=== PATIENT | female | born 1950 | race Caucasian/White ===

== ENCOUNTER 2016-08-18 15:48 | Inpatient (IN) ==
[2016-08-18] MEDS ORDERED: IOPAMIDOL 100 ML BOTTLE IV ONE (15:49)
[2016-08-18] MEDS ORDERED: IPRATROPIUM/ALBUTEROL 3 ML AMPUL.NEB NEB ONE ×2 (15:51→16:40)
[2016-08-18] MEDS ORDERED: ALBUTEROL SULFATE 2.5 MG/3 ML NEBULIZER NEB ONE (16:08)
--- NOTE | 2016-08-18 16:11 | Emergency Department Note ---
SOB HPI - General Chief Complaint: Shortness of Breath/Dyspnea Stated Complaint: Shortness of breath Time Seen by Provider: 08/18/16 16:07 Source: patient Mode of arrival: ambulatory Limitations: no limitations - History of Present Illness 66-year-old female on hormone replacement therapy with sudden onset shortness of breath with hypoxia down to 82% on arrival- started 2 hours ago. Has been antibiotics up until yesterday for upper respiratory infection and UTI at last visit. Denies fever nausea vomiting diarrhea. No cancer history. - Related Data Home Medications Medication Instructions Recorded Confirmed cholecalciferol (vitamin D3) 2,000 2,000 unit PO QDAY cap 03/15/15 08/18/16 unit capsule fentanyl 25 mcg/hr transdermal 1 patch TRANSDERMA Q48H patch 03/15/15 08/18/16 patch HYDROcodone/ACETAMINOPHEN [[place] 1 tab PO BID PRN tab 12/08/15 08/18/16 Hd 10-325 mg Tablet] Levothyroxine Sodium [Levoxyl] 100 mcg PO DAILY 30 Days 12/08/15 08/18/16 cyclobenzaprine 10 mg tablet 10 mg PO QHS 30 Days 12/08/15 08/18/16 DULoxetine 60 mg PO DAILY 02/22/16 08/18/16 Previous Rx's Medication Instructions Recorded conjugated estrogens 1.25 mg tablet 1.25 mg PO QDAY #90 tab 08/26/15 propranolol 40 mg tablet 20 mg PO BID #90 tab 12/14/15 isosorbide mononitrate ER 30 mg 30 mg PO QDAY 90 Days 04/20/16 tablet,extended release 24 hr hydrochlorothiazide 25 mg tablet 25 mg PO QDAY 90 Days 04/23/16 atorvastatin 10 mg tablet 10 mg PO QDAY #90 tab 05/08/16 potassium chloride ER 10 mEq 10 meq PO BID #180 tab 07/03/16 tablet,extended release(part/cryst) metformin ER 500 mg 500 mg PO QDAY #90 tab 07/05/16 tablet,extended release 24 hr temazepam 30 mg capsule 30 mg PO QHS PRN #30 cap 08/03/16 Allergies Allergy/AdvReac Type Severity Reaction Status Date / Time No Known Drug Allergies Allergy Verified 08/18/16 15:50 Review of Systems All systems ED: reviewed and negative except as stated. Past Medical History - Past Medical History Attestation: Yes: The following information was validated with the patient. Medical history: Reports: arthritis, asthma, diabetes, fibromyalgia, GERD, hyperlipidemia, hypertension, thyroid disease Surgical history ED: Reports: cataract, cholecystectomy, herniorrhaphy, orthopedic, other, BETTE/BSO, thyroidectomy, tonsillectomy - Social History smoking status: Former smoker Physical Exam Normocephalic atraumatic. Conjunctiva clear sclerae anicteric. No nasal discharge but some audible congestion. Oropharynx is pink and moist. Posterior pharynx is with some mild erythema postnasal drip. Wearing nasal cannula oxygen. No lymphadenopathy or thyromegaly. Heart is regular rate and rhythm no murmurs appreciated. Lungs with some subtle wheezes in all lung garcia. Tight breathing sounds. Able to talk but not in complete sentences without pausing for breath. +2 radial pulse. Abdomen soft nontender nondistended. No pedal edema. Alert and oriented. - General Limitations: no limitations Course Vital Signs Temperature 97.3 F L 08/18/16 15:48 Pulse Rate 96 H 08/18/16 15:48 Respiratory Rate 20 08/18/16 15:48 Blood Pressure 166/98 08/18/16 15:48 Pulse Oximetry (%) 82 L 08/18/16 15:48 Temperature 97.3 F L 08/18/16 15:48 Pulse Rate 102 H 08/18/16 19:00 Respiratory Rate 14 08/18/16 19:00 Blood Pressure 103/61 08/18/16 19:00 Pulse Oximetry (%) 90 08/18/16 19:00 Shortness of Breath/Dyspnea - Lab Data Lab results reviewed: Yes I reviewed the patient's lab results. Result diagrams: 08/18/16 16:06 08/18/16 16:06 Lab Results 08/18/16 08/18/16 08/18/16 Range/Units 16:06 16:06 16:06 WBC 5.1 (4.5-11.0) K/mcL RBC 4.58 (4.00-5.20) M/mcL Hgb 13.9 (12.0-15.0) g/dL Hct 42.1 (36.0-48.0) % POC Hct (36.0-48.0) % MCV 91.8 (80.0-100.0) fL MCH 30.2 (26.0-34.0) pg MCHC 33.0 (31.0-36.0) g/dL RDW 13.0 (11.5-14.5) % Plt Count 322 (140-440) K/mcL MPV 8.2 (7.4-10.4) fL Gran % 71.6 (38.0-78.0) % Lymph % (Auto) 27.4 (15.5-49.0) % [place] % (Auto) 0.4 L (1.0-9.0) % Eos % (Auto) 0.3 (0.0-7.0) % Baso % (Auto) 0.3 (0.0-2.0) % Gran # 3.6 (1.8-8.0) K/mcL Lymph # 1.4 L (1.5-4.8) K/mcL [place] # 0 L (0.1-0.9) K/mcL Eos # 0 (0.0-0.7) K/mcL Baso # 0 (0.0-0.3) K/mcL POC Sodium (133-145) mmol/L Sodium 138 (133-145) mmol/L POC Potassium (3.3-5.1) mmol/L Potassium 3.6 (3.3-5.1) mmol/L POC Chloride (96-108) mmol/L Chloride 99 (96-108) mmol/L Carbon Dioxide 27 (22-30) mmol/L POC Total CO2 (22-30) mmol/L Anion Gap 12.0 (8-16) POC BUN (8-23) mg/dl BUN 10 (8-23) mg/dl Creatinine 0.7 (0.6-1.1) mg/dl POC Creatinine (0.6-1.1) mg/dl GFR Calculation 92 Glucose 128 H (70-105) mg/dL POC Glucose (70-105) mg/dL Calcium 9.0 (8.6-10.4) mg/dl POC WB Ioniz Calcium (1.16-1.32) mmol/L Total Bilirubin 0.4 (0.0-1.0) mg/dL AST 21 (0-37) U/l ALT 18 (0-40) U/l Alkaline Phosphatase 35 L (39-117) U/L Troponin T < 0.01 (0-0.03) ng/ml Total Protein 6.0 (5.9-8.4) gm/dL Albumin 3.7 (3.2-5.2) gm/dL Globulin 2.3 (2.2-3.7) gm/dL Albumin/Globulin Ratio 1.6 (1.0-2.3) 08/18/16 Range/Units 16:10 WBC (4.5-11.0) K/mcL RBC (4.00-5.20) M/mcL Hgb (12.0-15.0) g/dL Hct (36.0-48.0) % POC Hct 43.0 (36.0-48.0) % MCV (80.0-100.0) fL MCH (26.0-34.0) pg MCHC (31.0-36.0) g/dL RDW (11.5-14.5) % Plt Count (140-440) K/mcL MPV (7.4-10.4) fL Gran % (38.0-78.0) % Lymph % (Auto) (15.5-49.0) % [place] % (Auto) (1.0-9.0) % Eos % (Auto) (0.0-7.0) % Baso % (Auto) (0.0-2.0) % Gran # (1.8-8.0) K/mcL Lymph # (1.5-4.8) K/mcL [place] # (0.1-0.9) K/mcL Eos # (0.0-0.7) K/mcL Baso # (0.0-0.3) K/mcL POC Sodium 140 (133-145) mmol/L Sodium (133-145) mmol/L POC Potassium 3.7 (3.3-5.1) mmol/L Potassium (3.3-5.1) mmol/L POC Chloride 99 (96-108) mmol/L Chloride (96-108) mmol/L Carbon Dioxide (22-30) mmol/L POC Total CO2 27 (22-30) mmol/L Anion Gap (8-16) POC BUN 10 (8-23) mg/dl BUN (8-23) mg/dl Creatinine (0.6-1.1) mg/dl POC Creatinine 0.7 (0.6-1.1) mg/dl GFR Calculation Glucose (70-105) mg/dL POC Glucose 127 H (70-105) mg/dL Calcium (8.6-10.4) mg/dl POC WB Ioniz Calcium 1.16 (1.16-1.32) mmol/L Total Bilirubin (0.0-1.0) mg/dL AST (0-37) U/l ALT (0-40) U/l Alkaline Phosphatase (39-117) U/L Troponin T (0-0.03) ng/ml Total Protein (5.9-8.4) gm/dL Albumin (3.2-5.2) gm/dL Globulin (2.2-3.7) gm/dL Albumin/Globulin Ratio (1.0-2.3) ABG pH 7.42 PCO2 42 PO2 60 on oxygen - Radiology Data Radiology results reviewed: Yes I reviewed the patient's radiology results. CT angiogram of the chest shows no pneumonia or pulmonary embolism. - EKG Data EKG attestation: Yes I reviewed and interpreted this EKG. EKG results narrative: EKG shows a rate of 94 normal sinus rhythm without evidence of ischemia Disposition Clinical Impression: Asthma with exacerbation Qualifiers: Asthma severity: unspecified severity Qualified Code(s): J45.901 - Unspecified asthma with (acute) exacerbation Summary: Likely asthma/COPD exacerbation with hypoxia- after 2 breathing treatments we were able to turn down the oxygen nasal cannula; however she still required oxygen with getting up to move around- drop down to 87% with walking. She is given azithromycin and Solu-Medrol. aBG shows pH is 7.42 PCO2 42 and PO2 60 which is essentially normal except for mild hypoxia Complaining of neck pain chronic so we gave her home hydrocodone- she is also on a fentanyl patch for this. Discussed case with Dr. Park the hospitalist who agreed to accept patient in transfer for above-noted diagnoses Disposition: Xfer As Inpt ([facility]) Condition: Serious Referrals: Gabriel Tristan MD [Primary Care Provider] - Kurtis Scott MD [Physician] -
[2016-08-18 16:47] LABS: Basophils # (Auto) 0 K/mcL (0.0-0.3); Basophils % (Auto) 0.3 % (0.0-2.0); Eosinophils # (Auto) 0 K/mcL (0.0-0.7); Eosinophils % (Auto) 0.3 % (0.0-7.0); Granulocytes % (Auto) 71.6 % (38.0-78.0); Lymphocytes # (Auto) 1.4 K/mcL (1.5-4.8); Lymphocytes % (Auto) 27.4 % (15.5-49.0); Mean Cell Volume 91.8 fL (80.0-100.0); Mean Corpuscular Hemoglobin 30.2 pg (26.0-34.0); Monocytes # (Auto) 0 K/mcL (0.1-0.9); Monocytes % (Auto) 0.4 % (1.0-9.0); Platelet Count 322 K/mcL (140-440); RBC 4.58 M/mcL (4.00-5.20)
[2016-08-18 17:09] LABS: ALT/SGPT 18 U/l (0-40); Albumin 3.7 gm/dL (3.2-5.2); Albumin/Globulin Ratio 1.6 (1.0-2.3); Alkaline Phosphatase 35 U/L (39-117); Blood Urea Nitrogen 10 mg/dl (8-23)
[2016-08-18] MEDS ORDERED: HYDROcodone/APAP 5/325MG TABLET PO ONE (17:35)
[2016-08-18] MEDS ORDERED: AZITHROMYCIN 250 MG TABLET PO ONE (17:54)
[2016-08-18] MEDS ORDERED: methylPREDNISolone SOD SUCC 125 MG/2 ML VIAL IV ONE (17:54)
[2016-08-18] MEDS ORDERED: HYDROcodone/APAP 10/325MG TABLET PO ONE (18:34)
[2016-08-18] MEDS ORDERED: POTASSIUM CHLORIDE 20 MEQ PACKET PO PRN (19:53)
[2016-08-18] MEDS ORDERED: ACETAMINOPHEN 1,000 MG/100 ML BOTTLE IV PRN (19:53)
[2016-08-18] MEDS ORDERED: ACETAMINOPHEN 325 MG TABLET PO PRN (19:53)
[2016-08-18] MEDS ORDERED: MAGNESIUM SULFATE 2 GM/50 ML BAG IV PRN (19:53)
[2016-08-18] MEDS ORDERED: guaiFENesin/CODEINE 10 ML UDC PO PRN (19:53)
[2016-08-18] MEDS ORDERED: traZODone HCL 50 MG TABLET PO PRN (19:53)
[2016-08-18] MEDS ORDERED: ONDANSETRON 4 MG/2 ML VIAL IV PRN (19:53)
[2016-08-18] MEDS: 0.9 % SODIUM CHLORIDE 10 ML SYRINGE IV SCH (20:19)
--- NOTE | 2016-08-18 20:31 | Cat Scan Report ---
CLINICAL INFORMATION: Shortness of breath hypoxia on estrogen COMPARISON: None TECHNIQUE: Axial images obtained through the chest. 80 cc intravenous contrast administration was administered, and scanning was performed during pulmonary arterial phase. Sagittally and coronally reformatted images were obtained. MIP reformatted images. FINDINGS: The pulmonary arteries are normal in contour and caliber and well-opacified - no evidence of embolus. The thoracic aorta is also normal in contour and caliber with diffuse intimal thickening. There is no adenopathy in the mediastinal, hilar or axillary regions. Esophagus is normal. The heart is normal in size and configuration with small amounts of calcific and fibrofatty plaque in the coronary arteries. Pulmonary parenchymal windows show mild centrilobular emphysema changes featuring elevated lung volumes, chronic bronchitis and scattered bullae, predominantly in the upper lobes. There is also scattered scarring in the periphery of both lungs. . There is minimal vague scattered centrilobular airspace disease in the peripheral upper lobes suggesting respiratory bronchiolitis - a noninfectious inflammatory condition seen in smokers. There are no effusions. Bones and soft tissues of the chest wall are normal. Images should the abdomen show scattered simple cysts in the liver ranging up to 2.2 cm in the right hepatic lobe. IMPRESSION: 1. No evidence of pulmonary embolus - pulmonary arteries are unremarkable 2. Mild centrilobular emphysema 3. Mild scattered centrilobular airspace disease in the peripheral upper lobes suggesting mild respiratory bronchiolitis - a noninfectious inflammatory condition typically seen in smokers. It typically resolves with smoking cessation. Interpreted and Authenticated by: Winston Coker 08/18/16
[2016-08-18] MEDS ORDERED: PROPRANOLOL 20 MG TABLET PO SCH (21:00)
[2016-08-18] MEDS: IPRATROPIUM/ALBUTEROL 3 ML AMPUL.NEB NEB SCH ×3 (21:23→22:35)
[2016-08-18] MEDS: BUDESONIDE 0.5 MG/2 ML AMPUL.NEB NEB SCH (21:41)
[2016-08-18] MEDS: LEVOFLOXACIN 750 MG/150 ML BAG IV SCH (21:41)
[2016-08-18] MEDS: HYDROcodone/APAP 10/325MG TABLET PO PRN (22:37)
[2016-08-18] MEDS: HEPARIN 5,000 UNIT/ML VIAL SQ SCH (22:37)
[2016-08-18] MEDS: SENNOSIDES/DOCUSATE SODIUM 1 TAB TABLET PO SCH (22:38)
[2016-08-18] MEDS: POTASSIUM CHLORIDE 10 MEQ TABLET PO SCH (22:38)
[2016-08-18] MEDS: TEMAZEPAM 15 MG CAPSULE PO PRN (22:38)
[2016-08-18] MEDS: CYCLOBENZAPRINE 10 MG TABLET PO SCH (22:38)
[2016-08-18] MEDS: DOCUSATE SODIUM 100 MG CAPSULE PO SCH (22:38)
[2016-08-18] MEDS: 0.9 % SODIUM CHLORIDE 1,000 ML IV SCH (22:57)
[2016-08-18] MEDS ORDERED: PROPRANOLOL 10 MG TABLET PO ONE (23:50)
[2016-08-19] MEDS: methylPREDNISolone SOD SUCC 125 MG/2 ML VIAL IV SCH ×2 (00:11→05:25)
[2016-08-19] MEDS: IPRATROPIUM/ALBUTEROL 3 ML AMPUL.NEB NEB SCH ×6 (03:57→22:59)
[2016-08-19] MEDS: 0.9 % SODIUM CHLORIDE 10 ML SYRINGE IV SCH ×3 (05:38→18:55)
[2016-08-19 06:17] LABS: Mean Cell Volume 92.9 fL (80.0-100.0); Mean Corpuscular HGB Conc 32.8 g/dL (31.0-36.0); Mean Corpuscular Hemoglobin 30.4 pg (26.0-34.0); Platelet Count 307 K/mcL (140-440); RBC 4.11 M/mcL (4.00-5.20); Red Cell Distribution Width 13.1 % (11.5-14.5)
[2016-08-19 06:34] LABS: ALT/SGPT 22 U/l (0-40); Albumin 3.8 gm/dL (3.2-5.2); Alkaline Phosphatase 29 U/L (39-117); Bilirubin,Direct < 0.2 mg/dL (0.0-0.3); Blood Urea Nitrogen 9 mg/dl (8-23); Gamma Glutamyl Transpeptidase 18 U/L (5-36); Magnesium 1.7 mg/dL (1.6-2.5); Phosphorous 2.8 mg/dL (2.7-4.5); Uric Acid 4.6 mg/dL (2.5-8.0)
[2016-08-19] MEDS: PANTOPRAZOLE 40 MG TABLET PO SCH (07:11)
[2016-08-19] MEDS: LEVOTHYROXINE 100 MCG TABLET PO SCH (07:11)
[2016-08-19] MEDS: HYDROcodone/APAP 10/325MG TABLET PO PRN ×2 (07:11→15:29)
[2016-08-19] MEDS: BUDESONIDE 0.5 MG/2 ML AMPUL.NEB NEB SCH ×3 (07:31→22:58)
[2016-08-19 08:05] LABS: Band Neutrophils % 25 % (0-10); Lymphocytes % 6 % (15-49); Platelet Estimate NORMAL (NORMAL); RBC Morphology NORMAL (NORMAL); Segmented Neutrophils % 69 % (38-78)
[2016-08-19] MEDS ORDERED: 0.9 % SODIUM CHLORIDE 1,000 ML IV ONE (09:19)
[2016-08-19] MEDS: POTASSIUM CHLORIDE 10 MEQ TABLET PO SCH ×2 (09:28→22:10)
[2016-08-19] MEDS: HYDROCHLOROTHIAZIDE 25 MG TABLET PO SCH (09:29)
[2016-08-19] MEDS: DOCUSATE SODIUM 100 MG CAPSULE PO SCH ×2 (09:29→22:10)
[2016-08-19] MEDS: ISOSORBIDE MONONITRATE 30 MG TAB.XL.24H PO SCH (09:29)
[2016-08-19] MEDS: sitaGLIPtin 100 MG TABLET PO SCH (09:29)
[2016-08-19] MEDS: HEPARIN 5,000 UNIT/ML VIAL SQ SCH ×2 (09:30→22:09)
[2016-08-19] MEDS: ESTROGENS, CONJUGATED 0.625 MG TABLET PO SCH (09:30)
[2016-08-19] MEDS: MULTIVIT,THER IRON,CA,FA & MIN 1 TABLET PO SCH (09:30)
[2016-08-19] MEDS: ATORVASTATIN 20 MG TABLET PO SCH (09:32)
[2016-08-19] MEDS: DULoxetine 30 MG CAPSULE PO SCH (09:34)
[2016-08-19] MEDS: PROPRANOLOL 10 MG TABLET PO SCH ×2 (09:37→22:10)
[2016-08-19] MEDS ORDERED: fentaNYL 25 MCG PATCH TD SCH (10:00)
[2016-08-19] MEDS: PIPERACILLIN SODIUM/TAZOBACTAM 3.375 GM in DEXTROSE 5% IN WATER 50 ML IV SCH ×3 (10:29→17:56)
[2016-08-19 10:31] LABS: Appearance,Urine CLEAR; Bacteria,Urine 0 /hpf (0); Bilirubin,Urine NEG (NEG); Color,Urine STRAW; Glucose,Urine (UA) >=500 mg/dL (NEG); Leukocyte Esterase,Urine NEG /uL (NEG); Nitrate,Urine NEG (NEG); Protein,Urine NEG (NEG); Specific Gravity,Urine 1.001 (1.000-1.035); Urine Blood 0.2 mg/dL (<0.03); Urine RBC 2 /hpf (0-1); Urine Squamous Epithelial Cell 2 /hpf (0-4); Urine WBC < 1 /hpf (0-4); Urobilinogen,Urine NEG (NEG)
--- NOTE | 2016-08-19 10:31 | Internal Med Progress Note ---
Medical - PN: Subj Patient information: Note initiated : 08/19/16 at 10:29 am Service Date, if different from initiated Date: [] Patient: Gabbi Can 66 y/o F admitted on 08/18/16 for Shortness of breath. Chief Complaint: [] Interval history: 08/18-patient admitted with hypoxic respiratory insufficiency bronchiolitis and systemic response syndrome in light of significant shortness of breath progressing over the last 24 hours. Patient recently had a UTI and was prescribed levaquin for the same. She is accompanied with a significant other who claims to be her Sage. patient is fairly anxious. She is admitted for further evaluation. Start her on antibiotic steroids bronchodilators. CT chest negative for PE 08/19-await echocardiogram. White count jumped from 5000 21,000 with significant bandemia and left shift. Pro-calcitonin 1.87 Clearly indicative of underlying infectious process. start broad antibiotic coverage while aggressive source evaluation will be performed. continue pre-existing medical condition management of home meds. No overnight fever chills nausea vomiting. Patient unable to sleep. patient requesting discharge so she can get sleep at home however in light of worsening leukocytosis I would recommend against discharge until further workup can be done and treatment response noted. - Constitutional Vitals: Vital Signs Temp Pulse Resp BP Pulse Ox 97.6 F 101 H 12 127/81 95 08/19/16 08:00 08/19/16 08:00 08/19/16 08:00 08/19/16 08:00 08/19/16 08:00 Period Temp Pulse Resp BP Sys/Guzmán Pulse Ox Last 24 Hr 97.6 F-98.3 F 85-101 12-16 116-127/69-81 93-95 Intake and Output 08/18/16 08/19/16 08/19/16 21:59 05:59 13:59 Intake Total 740 / 740 360 / 360 Output Total 150 / 150 1350 / 1350 575 / 575 Balance -150 / -150 -610 / -610 -215 / -215 Weight 161 lb Intake & Output: Intake & Output 08/18/16 08/19/16 08/19/16 21:59 05:59 13:59 Intake Total 740 / 740 360 / 360 Output Total 150 / 150 1350 / 1350 575 / 575 Balance -150 / -150 -610 / -610 -215 / -215 Weight 161 lb Intake: Oral 740 / 740 360 / 360 Output: Void Amount 150 / 150 1350 / 1350 575 / 575 Other: Meal sandwich jello, crackers Breakfast Percent of Meal Consumed 50% 100% Feeding Ability Independent Independent Independent # Voids 2 General appearance: cooperative, no acute distress Exam: alert and anxious Nonlabored breathing,minimal crackles No lymphedema Nondistended abdomen Medical - PN: Obj Da - Labs CBC & Chem 7: 08/19/16 04:50 08/19/16 04:50 Labs: Abnormal Lab Results 08/19/16 08/19/16 04:50 04:50 WBC 21.0 H Band Neutrophils % 25 H Lymphocytes % 6 L Glucose 159 H Alkaline Phosphatase 29 L Total Protein 5.7 L Globulin 1.9 L Meds: Medications Acetaminophen (Tylenol) 650 mg PO Q4-6HP PRN PRN Reason: PAIN/FEVER > 101 Acetaminophen/Hydrocodone Bitart ([place] 10/325mg) 1 tab PO BIDP PRN PRN Reason: Pain Last Admin: 08/19/16 07:11 Dose: 1 tab Albuterol/Ipratropium (Duoneb) 3 ml NEB Q4HRT [facility] Last Admin: 08/19/16 07:31 Dose: 3 ml Atorvastatin Calcium (Lipitor) 10 mg PO DAILY [facility] Last Admin: 08/19/16 09:32 Dose: 10 mg Budesonide (Pulmicort) 0.5 mg NEB Q12 [facility] Last Admin: 08/19/16 07:31 Dose: 0.5 mg Cyclobenzaprine HCl (Flexeril) 10 mg PO QHS [facility] Last Admin: 08/18/16 22:38 Dose: 10 mg Docusate Sodium (Colace) 100 mg PO BID [facility] Last Admin: 08/19/16 09:29 Dose: 100 mg Duloxetine HCl (Cymbalta) 60 mg PO DAILY [facility] Last Admin: 08/19/16 09:34 Dose: 60 mg Estrogens Conjugated (Premarin) 1.25 mg PO DAILY [facility] Last Admin: 08/19/16 09:30 Dose: 1.25 mg Fentanyl (Duragesic) 25 mcg TD Q48H [facility] Guaifenesin/Codeine Phosphate (Robitussin Ac) 10 ml PO Q4HP PRN PRN Reason: Cough Heparin Sodium (Porcine) (Heparin) 5,000 unit SQ Q12 [facility] Last Admin: 08/19/16 09:30 Dose: 5,000 unit Hydrochlorothiazide (Oretic) 25 mg PO QDAY [facility] Last Admin: 08/19/16 09:29 Dose: 25 mg Levofloxacin (Levaquin) 750 mg in 150 mls @ 100 mls/hr IV DAILY [facility] Last Admin: 08/18/16 21:41 Dose: 100 mls/hr Magnesium Sulfate (Magnesium Sulfate) 2 gm in 50 mls @ 50 mls/hr IV UD PRN PRN Reason: MG = or < 1.7 Sodium Chloride (Sodium Chloride 0.9%) 1,000 mls @ 50 mls/hr IV .Q20H [facility] Stop: 08/21/16 07:52 Last Admin: 08/18/16 22:57 Dose: 50 mls/hr Acetaminophen (Ofirmev) 1,000 mg in 100 mls @ 200 mls/hr IV Q6HP PRN PRN Reason: PAIN/FEVER > 101 Piperacillin Sod/Tazobactam (Sod 3.375 gm/ Dextrose) 50 mls @ 100 mls/hr IV Q6 [facility] Iron Carb/Multivit/Degreaser/Folic Acid (Multivitamin W/Minerals) 1 tab PO DAILY [facility] Last Admin: 08/19/16 09:30 Dose: 1 tab Isosorbide Mononitrate (Imdur) 30 mg PO QDAY [facility] Last Admin: 08/19/16 09:29 Dose: 30 mg Levothyroxine Sodium (Synthroid) 100 mcg PO ACB [facility] Last Admin: 08/19/16 07:11 Dose: 100 mcg Ondansetron HCl (Zofran) 4 mg IV Q4-6HP PRN PRN Reason: Nausea And Vomiting Pantoprazole Sodium (Protonix) 40 mg PO QAMAC [facility] Last Admin: 08/19/16 07:11 Dose: 40 mg Potassium Chloride (Kdur) 10 meq PO BID [facility] Last Admin: 08/19/16 09:28 Dose: 10 meq Potassium Chloride (Klor-Con) 40 meq PO DAILYP PRN PRN Reason: K+ < 3.5 Propranolol HCl (Inderal) 20 mg PO BID [facility] Last Admin: 08/19/16 09:37 Dose: 20 mg Senna/Docusate Sodium (Senna Plus Tablet) 1 tab PO HS [facility] Last Admin: 08/18/16 22:38 Dose: 1 tab Sitagliptin Phosphate (Januvia) 100 mg PO DAILY [facility] Last Admin: 08/19/16 09:29 Dose: 100 mg Sodium Chloride (Saline Flush) 10 ml IV Q8 [facility] Last Admin: 08/19/16 05:38 Dose: Not Given Temazepam (Restoril) 30 mg PO HSP PRN PRN Reason: Insomnia Last Admin: 08/18/16 22:38 Dose: 30 mg Medical - PN: A/P - Time Spent With Patient Total time spent is greater than 50% in coordination of care (as documented) at patient's floor/unit and/or counseling patient: 25 - 35 minutes (1) Severe sepsis Status: Acute Assessment and plan: * Severe sepsis-unclear etiology. Bandemia along with white count 21,000. Cultures pending. On broad antibiotic coverage. Continue management per guidelines * Hypoxic respiratory insufficiency- On nasal cannula oxygen. Secondary to underlying bronchiolitis. 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 DC IV steroids * Anxiety disorder on home medication including digoxin/temazepam/propranolol * hypertension on hydrochlorothiazide/Isosorbide * chronic pain on fentanyl/cyclobenzaprine/oral opioids * dM type II on On prandial insulin * hypothyroidism on thyroxine * hyperlipidemia on statin * DVT prophylaxis on heparin Plan * Echocardiogram * Sepsis source evaluation * pre-existing medical condition management as above * Recommend against discharge at this time-patient insisting. Current Visit: Yes Medical - PN: Qual - VTE Deep Vein Thrombosis/Pulmonary Embolism Present on Admission: No
[2016-08-19] MEDS: LEVOFLOXACIN 750 MG/150 ML BAG IV SCH (14:27)
[2016-08-19] MEDS: 0.9 % SODIUM CHLORIDE 1,000 ML IV SCH (15:23)
[2016-08-19 18:08] LABS: Mean Cell Volume 93.3 fL (80.0-100.0); Mean Corpuscular HGB Conc 32.1 g/dL (31.0-36.0); Mean Corpuscular Hemoglobin 29.9 pg (26.0-34.0); Platelet Count 324 K/mcL (140-440); RBC 4.19 M/mcL (4.00-5.20); Red Cell Distribution Width 13.2 % (11.5-14.5)
[2016-08-19 18:32] LABS: Band Neutrophils % 11 % (0-10); Lymphocytes % 3 % (15-49); Monocytes % (Manual) 1 % (1-9); Platelet Estimate NORMAL (NORMAL); RBC Morphology NORMAL (NORMAL); Segmented Neutrophils % 84 % (38-78)
--- NOTE | 2016-08-19 20:00 | Cat Scan Report ---
CLINICAL INFORMATION: Left-sided abdominal pain COMPARISON: Abdomen and pelvic CT from 11/05/2013 and 01/02/2016. TECHNIQUE: Following enteric contrast, 80 cc of Isovue-300 were injected intravenously, and 60 seconds later, 2.5 mm helical slices were obtained from the mid heart through the subtrochanteric regions. Following reconstruction, 2.5 mm sagittal, coronal and axial reformatted images were processed and reviewed at bone, lung and soft tissue windows. Five minutes later, 5 mm helical slices were obtained from the mid heart through the kidneys and viewed at soft tissue windows. FINDINGS: Lung bases show only scattered scarring and/or atelectasis. There are no effusions. The visualized heart is grossly normal. Images through the abdomen show multiple cysts scattered throughout the liver which are identical to the earliest study nearly 3 years ago 11/05/2013. Two hepatic lesions are higher attenuation: 2.4 cm in the nelly hepatis and 1.2 cm in the anterior segment of the right hepatic lobe. Both of these are slightly smaller. The gallbladder is surgically absent. Intrahepatic and common bile ducts are normal caliber - CBD is 5 mm. Both kidneys, adrenal glands, spleen, pancreas and aorta, including aortic branches, are normal in size, configuration and attenuation without focal lesion. There is no free air, free fluid and no adenopathy. The stomach, small and large bowel are grossly normal. Images through the pelvis show urinary bladder to be normal. Hysterectomy/oophorectomy changes are present. Bone windows show no osseous abnormality. IMPRESSION: Scattered low-attenuation lesions in the liver, nearly all cysts, have been stable for nearly 3 years. They should be considered benign. No cause identified for left-sided abdominal pain Interpreted and Authenticated by: Winston Coker 08/19/16
[2016-08-19] MEDS ORDERED: IOPAMIDOL 100 ML BOTTLE IJ ONE (20:26)
[2016-08-19] MEDS: SENNOSIDES/DOCUSATE SODIUM 1 TAB TABLET PO SCH (22:09)
[2016-08-19] MEDS: TEMAZEPAM 15 MG CAPSULE PO PRN (22:09)
[2016-08-19] MEDS: CYCLOBENZAPRINE 10 MG TABLET PO SCH (22:10)
[2016-08-19] MEDS ORDERED: LORazepam 2 MG/ML VIAL IV PRN (22:35)
[2016-08-19] MEDS ORDERED: HYDROmorphone 2 MG/ML SYRINGE IV PRN (22:35)
[2016-08-19] MEDS ORDERED: HYDROmorphone 2 MG/ML SYRINGE ONE (22:41)
[2016-08-19] MEDS ORDERED: MAGNESIUM CITRATE 300 ML ORAL.SOL ONE (22:41)
[2016-08-19] MEDS: MAGNESIUM CITRATE 300 ML ORAL.SOL PO ONE (22:49)
[2016-08-19] MEDS ORDERED: LORazepam 2 MG/ML VIAL ONE (23:47)
[2016-08-20] MEDS: 0.9 % SODIUM CHLORIDE 10 ML SYRINGE IV SCH ×2 (00:34→06:13)
[2016-08-20] MEDS: MAGNESIUM CITRATE 300 ML ORAL.SOL PO ONE (00:36)
[2016-08-20] MEDS: PIPERACILLIN SODIUM/TAZOBACTAM 3.375 GM in DEXTROSE 5% IN WATER 50 ML IV SCH ×2 (01:05→05:56)
[2016-08-20] MEDS: IPRATROPIUM/ALBUTEROL 3 ML AMPUL.NEB NEB SCH ×2 (03:08→07:22)
[2016-08-20 06:04] LABS: Mean Cell Volume 93.5 fL (80.0-100.0); Mean Corpuscular HGB Conc 32.5 g/dL (31.0-36.0); Mean Corpuscular Hemoglobin 30.3 pg (26.0-34.0); Platelet Count 300 K/mcL (140-440); RBC 3.88 M/mcL (4.00-5.20); Red Cell Distribution Width 13.6 % (11.5-14.5)
[2016-08-20 06:46] LABS: ALT/SGPT 16 U/l (0-40); Albumin 3.4 gm/dL (3.2-5.2); Albumin/Globulin Ratio 1.9 (1.0-2.3); Alkaline Phosphatase 31 U/L (39-117); Bilirubin,Direct < 0.2 mg/dL (0.0-0.3); Blood Urea Nitrogen 10 mg/dl (8-23); Gamma Glutamyl Transpeptidase 16 U/L (5-36); Magnesium 2.5 mg/dL (1.6-2.5); Phosphorous 3.2 mg/dL (2.7-4.5); Uric Acid 2.7 mg/dL (2.5-8.0)
[2016-08-20] MEDS: BUDESONIDE 0.5 MG/2 ML AMPUL.NEB NEB SCH (07:22)
[2016-08-20] MEDS: PANTOPRAZOLE 40 MG TABLET PO SCH (07:39)
[2016-08-20] MEDS: LEVOTHYROXINE 100 MCG TABLET PO SCH (07:39)
--- NOTE | 2016-08-20 07:44 | History and Physical Report ---
DATE OF ADMISSION: 08/18/2016 DATE OF ADMISSION: 08/18/2016 REASON FOR ADMISSION: Worsening shortness of breath. HISTORY OF CHIEF COMPLAINT: Gabbi is a 66-year-old who lives with her , Sage and works at a salon. She has been in her baseline state of health until 1 week prior to presentation. The patient came to [facility] Emergency Room with symptoms of UTI. She was prescribed Levaquin. Over the next few days, the patient continued to improve; however, since Saturday she has been getting weaker. A day prior to presentation, she noticed increasing worsening shortness of breath. On the morning of presentation, she could barely breathe with profound dyspnea on exertion that prompted her to come to [facility] ER. She denied sick contacts. She is up to date on vaccines. She sees primary care physician, Dr. Gabriel Tristan. She denies active or passive exposure to smoking, denies recent travel, changes in medications. She further denies palpitation, drenching sweats, shaking chills, yellow productive sputum. She endorses significant wheezing. She denies PND, but endorses to orthopnea. Initial workup in the ER was unremarkable with CT angiogram chest without any evidence of PE except for bronchiolitis involving upper lobes. Initial blood gases 7.42/42/60 on 2 oxygen. Hospitalist Service was consulted. At the time of examination, the patient is alert, oriented, remarkably short of breath. She denies joint pain, rash, skin changes, weight loss, diarrhea, dysuria, or bloody stool. She further denies headache, photophobia, diplopia, or neck stiffness. REVIEW OF SYSTEMS: Ten-point review of system was performed and negative except for the ones discussed above. PAST MEDICAL HISTORY: 1. Significant for history of asthma. 2. Degenerative joint disease. 3. Diabetes mellitus type 2. 4. Fatigue and fibromyalgia. 5. Hypertension. 6. Hyperlipidemia. 7. Hormone replacement therapy. SURGICAL HISTORY: 1. Carpal tunnel release. 2. Cataract surgery. 3. Cholecystectomy. 4. Hysterectomy along with oophorectomy. 5. History of thyroidectomy. FAMILY HISTORY: Significant for DM and CVA including mother, along with hypertension in mother, CVA in sister, ovarian cancer in a granddaughter. SOCIAL HISTORY: The patient is to her , Sage, lives in the [place]. Denies history of recent smoking, she quit 4 years ago. No history of alcoholism, substance abuse. It is unclear the patient's mental status as Sage introduces himself as her , but per patient he is a boyfriend. She has a daughter who lives locally. CURRENT MEDICATIONS: Metformin 500 extended release. Isosorbide 30 daily. Conjugated estrogen 1.25 daily. Fentanyl 25 one patch every 48. Potassium 10 two times a day. Propranolol 20 two times a day. Temazepam 30 at bedtime as needed. Hydrocodone/acetaminophen 1 tab two times a day as needed. Levothyroxine 100 daily. Atorvastatin 10. Duloxetine 60. PHYSICAL EXAMINATION: GENERAL: The patient is in moderate distress from shortness of breath. BMI 30. Height 5 feet 1 inch. VITAL SIGNS: Blood pressure 122/76, respiratory rate 16, temperature 97.3, pulse 105, sats 90 percent on 1 liter of oxygen. HEENT: Pupils symmetric. Oral cavity is dry. No ear or nose discharge. Head is normocephalic and atraumatic. NECK: No lymphadenopathy. HEART: S1, S2 regular rhythm. Tachycardia. ESM grade 1. CHEST: Diminished breath sounds bilateral bases, minimal expiratory rhonchi appreciated, but no crackles. ABDOMEN: Soft and nontender. LOWER EXTREMITIES: No cyanosis or clubbing. No joint swelling. SKIN: No suspicious lesions. PSYCHIATRIC: Anxious, but alert and cooperative. No agitation. NEURO: Nonfocal, moving all four extremities. LABS AND IMAGING: White count 5.1, hemoglobin 13.9, and platelets 322. Sodium 140, potassium 2.9, creatinine 0.7, troponin less than 0.1. Bilirubin 0.4. LFTs otherwise unremarkable. UA pending. Serology legionella, mycoplasma and strep pneumo pending. Gram stain and cultures pending. Influenza pending. ASSESSMENT AND PLAN: A 66-year-old with bronchiolitis/shortness of breath. 1. Acute bronchiolitis with dyspnea. The patient was started on steroids, bronchodilators will be admitted as inpatient in light of hypoxic respiratory insufficiency. 2. Hypoxic respiratory insufficiency. Continue supplemental oxygen while underlying etiology will be addressed. Await cultures. Add procalcitonin along with echocardiogram to rule out cardiac etiology. 3. Systemic inflammatory response syndrome secondary to above. Continue management per protocol. 4. Prior medical issues including hyperlipidemia. Continue statin. 5. Diabetes mellitus type 2. Continue basal prandial insulin. 6. Anxiety disorder. Continue propranolol, duloxetine, temazepam at home dose. 7. Hypertension. Continue hydrochlorothiazide/isosorbide. 8. Hypothyroidism. Continue thyroxine. PLAN FOR TODAY: 1. Admit as inpatient. 2. Supplemental oxygen. 3. Echocardiogram. 4. Sputum Gram stain, influenza, mycoplasma, strep pneumo. 5. Antibiotic coverage. The patient will require at least 2 midnight stay in light of hypoxic respiratory insufficiency while be done further investigation to assess etiology for the same. [id number]:leny Job ID: [id number] Doc ID: [id number] Kurtis Tristan MD MTDD
--- NOTE | 2016-08-20 08:11 | Echocardiogram Report ---
ECHOCARDIOGRAM: 2-D and M-mode echocardiography with cardiac Doppler and color flow imaging were performed with a [employer] A[employer]io MX. (See accompanying M-mode and Doppler reports for quantitation.) INDICATION: \\"Rule out cardiac.\\" Overall size of the 4 cardiac chambers and aortic root appeared normal, as did RV and LV wall thickness. LV systolic performance appeared vigorous. Estimated ejection fraction of 70 percent. The aortic valve appeared trileaflet and structurally normal. There was no evidence for aortic stenosis by Doppler interrogation. Aortic regurgitation, probably moderate (2+), was demonstrated. The mitral and tricuspid valves appear unremarkable. Doppler interrogation of LV inflow disclosed prolonged early diastolic deceleration time and __ dominance indicating delayed LV relaxation. There was no evidence for mitral regurgitation. The pulmonic valve was not visualized. Pulmonary artery acceleration time appeared normal. There was no evidence for pulmonic stenosis or pulmonic regurgitation. Tricuspid regurgitation, probably mild (1+), was demonstrated. No intracardiac shunting was appreciated. There was no evidence for pericardial effusion. The IVC appeared mildly dilated and varied only slightly with the respiratory cycle suggesting raised CVP. Calculated estimate of PA systolic pressure is mildly to moderately elevated at 45 mmHg. Borderline sinus tachycardia, rate 100, was present. CONCLUSION: Aortic regurgitation, probably moderate (2+). Probable mild to moderate pulmonary hypertension/raised CVP. ECHOCARDIOGRAPHY M-MODE CALCULATIONS: HT: 61\\" WT: 155 BSA: 1.70 m sq NORMALS AORTA: AORTIC ROOT 2.7 2.0-3.7 cm LEFT ATRIUM 2.6 1.9-4.0 cm MITRAL VALVE: EXCURSION 1.9 1.9-2.7 cm EPSS 0.3 <0.5 cm LT VENTRICLE: LVID (ED) 4.8 3.5-5.7 cm LVID (ES) 3.2 SEPTAL THICKNESS 1.0 0.6-1.1 cm SEPTAL EXCURSION 0.4 0.3-0.8 cm LVPW THICKNESS 1.1 0.6-1.1 cm LVPW EXCURSION 0.9 0.9-1.4 cm MINOR AXIS FS 33% 25%-40% RT VENTRICLE: RVID (ED) 0.9-2.6 cm(up to 3cm if LLD) QUALITATIVE DOPPLER FLOW STUDIES MITRAL VALVE AORTIC VALVE AR, probably moderate (2+). TRICUSPID VALVE TR, probably mild (1+). PULMONIC VALVE QUANTITATIVE DOPPLER FLOW STUDIES SAMPLE SITES VELOCITIES PEAK PRESSURE VALVE AREA and/or VALVE WINDOW (PEAK,M/SEC) DROP (GRADIENT) PRESSURE HALF-TIME MV (Diastole) 0.9 (E) 1.2 (A) MV (Systole) AO (Diastole) 4.5 260 msec AO (Systole) 1.9 TV (Systole) 2.5 PV (Systole) 0.9 PV (Diastole) LWG:salazar Job ID: [id number] Doc ID: [id number] Gagandeep Quintero MD
[2016-08-20 08:39] LABS: Band Neutrophils % 6 % (0-10); Lymphocytes % 12 % (15-49); Metamyelocytes % 1 % (0-0); Monocytes % (Manual) 3 % (1-9); Platelet Estimate NORMAL (NORMAL); RBC Morphology NORMAL (NORMAL); Segmented Neutrophils % 78 % (38-78)
--- NOTE | 2016-08-20 09:37 | Discharge Summary ---
Medical - DS: Prov Patient information: Note initiated : 08/20/16 at 9:35 am Service Date, if different from initiated Date: [] Patient: Gabbi Can 66 y/o F admitted on 08/18/16 for Shortness of breath. Chief Complaint: [] Date of admission: 08/18/16 19:44 Discharge date: 08/20/16 Primary care physician: [f_Reg Prim Care Provider] Medical - DS: Meds - Discharge Medications Prescriptions: Amoxicillin/Potassium Clav [Augmentin] 875 mg PO Q12H #10 tablet Active and Home Medications: Home Medications cholecalciferol (vitamin D3) 2,000 unit capsule 2,000 unit PO QDAY cap [History Confirmed 08/18/16 Last Taken 08/18/16 09:00] fentanyl 25 mcg/hr transdermal patch 1 patch TRANSDERMA Q48H patch 03/15/15 [ History Confirmed 08/18/16 Last Taken 08/17/16] conjugated estrogens 1.25 mg tablet 1.25 mg PO QDAY #90 tab 08/26/15 [Rx Confirmed 08/18/16 Last Taken 08/17/16 21:00] HYDROcodone/ACETAMINOPHEN [[place]orcet Hd 10-325 mg Tablet] 1 tab PO BID PRN tab [History Confirmed 08/18/16 Last Taken 08/18/16 09:00] Levothyroxine Sodium [Levoxyl] 100 mcg PO DAILY 30 Days 12/08/15 [History Confirmed 08/18/16 Last Taken 08/18/16 07:00] cyclobenzaprine 10 mg tablet 10 mg PO QHS 30 Days 12/08/15 [History Confirmed Last Taken 08/17/16 21:00] propranolol 40 mg tablet 20 mg PO BID #90 tab 12/14/15 [Rx Confirmed 08/18/16 Last Taken 08/18/16 09:00] DULoxetine 60 mg PO DAILY 02/22/16 [History Confirmed 08/18/16 Last Taken 09:00] isosorbide mononitrate ER 30 mg tablet,extended release 24 hr 30 mg PO QDAY 90 Days 04/20/16 [Rx Confirmed 08/18/16 Last Taken 08/18/16 09:00] hydrochlorothiazide 25 mg tablet 25 mg PO QDAY 90 Days 04/23/16 [Rx Confirmed Last Taken 08/18/16 09:00] atorvastatin 10 mg tablet 10 mg PO QDAY #90 tab 05/08/16 [Rx Confirmed 08/18/16 Last Taken 08/17/16 21:00] potassium chloride ER 10 mEq tablet,extended release(part/cryst) 10 meq PO BID # 180 tab 07/03/16 [Rx Confirmed 08/18/16 Last Taken 08/18/16 09:00] metformin ER 500 mg tablet,extended release 24 hr 500 mg PO QDAY #90 tab [Rx Confirmed 08/18/16 Last Taken 08/17/16 21:00] temazepam 30 mg capsule 30 mg PO QHS PRN #30 cap 08/03/16 [Rx Confirmed Last Taken 08/17/16 21:00] Amoxicillin/Potassium Clav [Augmentin] 875 mg PO Q12H #10 tablet 08/20/16 [Rx Last Taken Unknown] Naloxegol Oxalate [Movantik] 25 mg PO QDAY 08/20/16 [History Confirmed 08/20/16 Last Taken 08/17/16 09:00] Medical - DS: Hosp Hospital course: DISCHARGE DIAGNOSES * Systemic inflammatory response syndrome- clinically improving with downtrending leukocytosis. Possibly bronchiolitis. No other source identified including negative CT angiogram chest and abdomen. responding to antibiotics. Continue additional 5 days of Augmentin. Patient requesting discharge. She feels back to baseline. Off oxygen * Hypoxic respiratory insufficiency- now off oxygen. Clinically resolved. feels at baseline * Acute bronchiolitis-on antibiotics/bronchodilators. off steroids * Anxiety disorder on home medication including duloxetine,temazepam/propranolol * hypertension on hydrochlorothiazide/Isosorbide * chronic pain on fentanyl/cyclobenzaprine/oral opioids * dM type II on On prandial insulin * hypothyroidism on thyroxine * hyperlipidemia on statin * DVT prophylaxis on heparin BRIEF HOSPITAL COURSE Mr. aCn is a 66 year old female admitted with hypoxic respiratory insufficiency. 08/18-patient admitted with hypoxic respiratory insufficiency bronchiolitis and systemic response syndrome in light of significant shortness of breath progressing over the last 24 hours. Patient recently had a UTI and was prescribed levaquin for the same. She is accompanied with a significant other who claims to be her Sage. patient is fairly anxious. She is admitted for further evaluation. Start her on antibiotic steroids bronchodilators. CT chest negative for PE 08/19-await echocardiogram. White count jumped from 5000 21,000 with significant bandemia and left shift. Pro-calcitonin 1.87 Clearly indicative of underlying infectious process. start broad antibiotic coverage while aggressive source evaluation will be performed. continue pre-existing medical condition management of home meds. No overnight fever chills nausea vomiting. Patient unable to sleep. patient requesting discharge so she can get sleep at home however in light of worsening leukocytosis I would recommend against discharge until further workup can be done and treatment response noted. 08/20- white count down from 23->19 afebrile. Off oxygen. Clinically back to baseline. Requesting discharge. advised follow with primary care physician and repeat CBC in 5-7 days. Continue antibiotics for 5 days. No clear source identified except for bronchiolitis.detailed discharge instructions as below Discharge diagnosis: acute bronchiolitis, SIRS - Time Spent with Patient Total time spent providing and/or coordinating discharge services: Greater than 30 minutes Medical - DS: Exam - Constitutional Vitals: Vital Signs Temp Pulse Pulse Resp BP Pulse Ox 08/20/16 08:00 92 08/20/16 07:48 95 08/20/16 07:47 74 16 95 08/20/16 07:45 76 12 08/20/16 07:17 97.4 F L 76 138/88 97 08/20/16 03:07 98.9 F 79 14 112/65 96 08/20/16 01:11 94 08/19/16 23:34 98.3 F 93 H 26 H 125/81 92 08/19/16 23:00 99 H 22 08/19/16 19:56 98.1 F 103 H 28 H 114/70 93 08/19/16 18:46 93 08/19/16 18:09 126/75 08/19/16 17:46 103 H 20 95 08/19/16 16:00 98.7 F 92 H 24 132/72 96 08/19/16 14:59 103 H 18 93 08/19/16 13:19 98.0 F 94 H 16 95 08/19/16 12:00 91 08/19/16 11:50 98.0 F 94 H 16 132/80 94 08/19/16 11:12 92 H Intake and Output 08/19/16 08/20/16 08/20/16 21:59 05:59 13:59 Intake Total 2041 850 / 850 Output Total 2099 675 / 675 Balance -58 / -58 175 / 175 Intake: IV 922 / 922 50 / 50 Sodium Chloride 0.9% 1, 822 / 822 000 ml @ 50 mls/hr IV . Q20H MELONY Rx#:[id number] Dextrose 5% in Water 50 100 / 100 50 / 50 ml @ 100 mls/hr IV Q6 MELONY with Zosyn 3.375 gm Rx#: [id number] Oral 1120 / 1120 800 / 800 Output: Void Amount 2099 675 / 675 Other: Weight 161 lb 8 oz General appearance: cooperative, no acute distress Additional comments: alert oriented nonlabored breathing Stable vitals Medical - DS: Data Labs on day of discharge: Labs from last 24 hours 08/20/16 08/20/16 08/19/16 04:35 04:35 17:28 WBC 19.0 H 23.6 H RBC 3.88 L 4.19 Hgb 11.8 L 12.6 Hct 36.3 39.1 MCV 93.5 93.3 MCH 30.3 29.9 MCHC 32.5 32.1 RDW 13.6 13.2 Plt Count 300 324 MPV 8.4 8.1 Total Counted 100 100 Seg Neutrophils % 78 84 H Band Neutrophils % 6 11 H Lymphocytes % 12 L 3 L Monocytes % (Manual) 3 1 Metamyelocytes % 1 H Reactive Lymphocytes 1 Platelet Estimate Normal Normal RBC Morphology Normal Normal Sodium 138 Potassium 3.7 Chloride 95 L Carbon Dioxide 29 Anion Gap 14.0 BUN 10 Creatinine 0.7 GFR Calculation 92 Glucose 139 H Uric Acid 2.7 Calcium 8.3 L Phosphorus 3.2 Magnesium 2.5 Total Bilirubin 0.2 Direct Bilirubin < 0.2 GGT 16 AST 13 ALT 16 Alkaline Phosphatase 31 L Lactate Dehydrogenase 134 Total Protein 5.2 L Albumin 3.4 Globulin 1.8 L Albumin/Globulin Ratio 1.9 Triglycerides 128 Procalcitonin Urine Color Urine Appearance Urine pH Ur Specific [place] Urine Protein Urine Glucose (UA) Urine Ketones Urine Occult Blood Urine Nitrate Urine Bilirubin Urine Urobilinogen Ur Leukocyte Esterase Urine RBC Urine WBC Ur Squamous Epith Cells Urine Bacteria Ur Culture Indicated? Influenza A (Rapid) Influenza B (Rapid) Ur L.pneumophila Ag Mycoplasma pneumon IgM Ur Strep pneumoniae Ag 08/19/16 08/19/16 08/19/16 11:44 09:52 09:52 WBC RBC Hgb Hct MCV MCH MCHC RDW Plt Count MPV Total Counted Seg Neutrophils % Band Neutrophils % Lymphocytes % Monocytes % (Manual) Metamyelocytes % Reactive Lymphocytes Platelet Estimate RBC Morphology Sodium Potassium Chloride Carbon Dioxide Anion Gap BUN Creatinine GFR Calculation Glucose Uric Acid Calcium Phosphorus Magnesium Total Bilirubin Direct Bilirubin GGT AST ALT Alkaline Phosphatase Lactate Dehydrogenase Total Protein Albumin Globulin Albumin/Globulin Ratio Triglycerides Procalcitonin Urine Color Straw Urine Appearance Clear Urine pH 6.0 Ur Specific [place] 1.001 Urine Protein Neg Urine Glucose (UA) >=500 A Urine Ketones Neg Urine Occult Blood 0.2 A Urine Nitrate Neg Urine Bilirubin Neg Urine Urobilinogen Neg Ur Leukocyte Esterase Neg Urine RBC 2 H Urine WBC < 1 Ur Squamous Epith Cells 2 Urine Bacteria 0 Ur Culture Indicated? No Influenza A (Rapid) Presumed negative Influenza B (Rapid) Presumed negative Ur L.pneumophila Ag Mycoplasma pneumon IgM Ur Strep pneumoniae Ag Negative 08/19/16 08/19/16 08/19/16 09:52 08:50 08:50 WBC RBC Hgb Hct MCV MCH MCHC RDW Plt Count MPV Total Counted Seg Neutrophils % Band Neutrophils % Lymphocytes % Monocytes % (Manual) Metamyelocytes % Reactive Lymphocytes Platelet Estimate RBC Morphology Sodium Potassium Chloride Carbon Dioxide Anion Gap BUN Creatinine GFR Calculation Glucose Uric Acid Calcium Phosphorus Magnesium Total Bilirubin Direct Bilirubin GGT AST ALT Alkaline Phosphatase Lactate Dehydrogenase Total Protein Albumin Globulin Albumin/Globulin Ratio Triglycerides Procalcitonin 1.87 Urine Color Urine Appearance Urine pH Ur Specific [place] Urine Protein Urine Glucose (UA) Urine Ketones Urine Occult Blood Urine Nitrate Urine Bilirubin Urine Urobilinogen Ur Leukocyte Esterase Urine RBC Urine WBC Ur Squamous Epith Cells Urine Bacteria Ur Culture Indicated? Influenza A (Rapid) Influenza B (Rapid) Ur L.pneumophila Ag Pending Mycoplasma pneumon IgM Negative Ur Strep pneumoniae Ag TNP Medical - DS: A/P - Patient/Caregiver Discharge Instructions Activity: increase activity as tolerated Diet: Regular Diet Additional Instructions: Follow-up PCP in 5 days I recommend primary care physician to check CBC BMP UA as a posthospital follow- up in 1 week Antibiotics for 5 days Augmentin please scheduled for May function test in 3 weeks to evaluate COPD Continue aggressive bowel regimen to prevent constipation Continue fall precautions All meals on chair sitting upright at 90 degrees to prevent aspiration Return to ER if worsening fever chills shortness of breath, diarrhea, bleeding Review risk and side effect profile of medications including antibiotics. Side effect may include mild to severe reaction including rash, diarrhea, cdiff and even which can be prevented by close follow-up with PCP and monitoring for side effects Refrain from smoking and alcohol Continue diet and activity as advised Discussed importance of medication adherence Please review medication list with patient prior to discharge Please schedule follow-up with PCP/Providers prior to discharge and provide printouts Portions of this chart may have been created with [employer] voice recognition software. Occasional wrong-word or ?sound-like? substitutions may have occurred due to the inherent limitations of voice recognition software. Please read the chart carefully and recognize, using context, where the substitutions have occurred. CC- PCP Prescriptions: Amoxicillin/Potassium Clav [Augmentin] 875 mg PO Q12H #10 tablet - Follow up Plan Follow up with: Kurtis Scott MD [Physician] - Gabriel Tristan MD [Primary Care Provider] - Disposition: Home, Self-Care Prognosis: Fair Rehab Potential: Good I certify that the patient requires SNF services: No Overall status at discharge: patient is progressing back to baseline Medical - DS: Qual - VTE Deep Vein Thrombosis/Pulmonary Embolism Present on Admission: No
[2016-08-20] MEDS: DOCUSATE SODIUM 100 MG CAPSULE PO SCH (10:15)
[2016-08-20] MEDS: ISOSORBIDE MONONITRATE 30 MG TAB.XL.24H PO SCH (10:16)
[2016-08-20] MEDS: DULoxetine 30 MG CAPSULE PO SCH (10:16)
[2016-08-20] MEDS: HEPARIN 5,000 UNIT/ML VIAL SQ SCH (10:16)
[2016-08-20] MEDS: PROPRANOLOL 10 MG TABLET PO SCH (10:16)
[2016-08-20] MEDS: sitaGLIPtin 100 MG TABLET PO SCH (10:17)
[2016-08-20] MEDS: POTASSIUM CHLORIDE 10 MEQ TABLET PO SCH (10:17)
[2016-08-20] MEDS: ATORVASTATIN 20 MG TABLET PO SCH (10:17)
[2016-08-20] MEDS: LEVOFLOXACIN 750 MG/150 ML BAG IV SCH (10:17)
[2016-08-20] MEDS: MULTIVIT,THER IRON,CA,FA & MIN 1 TABLET PO SCH (10:18)
[2016-08-20] MEDS: HYDROCHLOROTHIAZIDE 25 MG TABLET PO SCH (10:18)
[2016-08-20] MEDS: ESTROGENS, CONJUGATED 0.625 MG TABLET PO SCH (10:18)
[2016-08-23 10:05] LABS: Legionella pneumophilia Ag, Ur NOT DETECTED
== END 2016-08-20 12:30 | disposition home or self-care (01) | DRG 872 ==
LOC: ED 15:48 → MEDSUR 19:44
PROVIDERS: ADMIT Internal Medicine; ATTEND Internal Medicine